=== PATIENT | female | born 1970 | race Caucasian/White ===

== ENCOUNTER 2018-08-09 12:49 | Emergency (ER) | payer OTHER ==
[2018-08-09] MEDS ORDERED: Albuterol/Ipratropium 3.0-0.5 MG/3 ML Neb Soln NEB ONE (13:14)
--- NOTE | 2018-08-09 13:22 | EDM.PDOC ---
ED HPI GENERAL MEDICAL PROBLEM - General Chief Complaint: Respiratory Problem Stated Complaint: [facility] Time Seen by Provider: 08/09/18 13:04 Source of Information: Reports: Patient History Limitations: Reports: No Limitations - History of Present Illness INITIAL COMMENTS - FREE TEXT/NARRATIVE: Patient is a 47-year-old female presents ED with a 2 week history of increasing shortness of breath. Patient states she's had a cough that is intermittently productive. At times has cough-induced emesis. Has noticed some increased wheezing to both lungs. States she's been gasping for air on multiple occasions in the day. She's had increase shortness of breath with exertion. She is unable to sleep laying flat due to increased shortness of breath. She's has noticed increased swelling to her lower extremities and recent weight gain. There has been at times chest tightness with increased shortness of breath relieved with rest. She has received a DuoNeb and albuterol treatment enroute with some improvements. She has no history of COPD and/or asthma. There's been questionable tactile fevers off and on since onset. She does have a history of severe scoliosis and notes she does not have recurrent history pneumonia. There' s been no upper story symptoms. She does smoke approximately half pack per day up until about 2 weeks ago. There is no history of pulmonary hypertension. She has no history of CAD. No history of DVT or PE. Patient denies any recent alcohol use. Denies recreational drug use. 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 Thus the patient was breathing in smoke. Multiple other coworkers had similar complaints. Denies fever, generalized body aches, abdominal pain, CVA tenderness, and/or dysuria. Treatments [employer]: Reports: Other (see below) Other Treatments [employer] W[employer]ER: albuteral neb and duoneb enroute Chest Pain Score (Numeric/FACES): 8 - Related Data Allergies Allergy/AdvReac Type Severity Reaction Status Date / Time No Known Allergies Allergy Verified 08/09/18 13:01 Home Meds: Home Meds . [No Known Home Meds] 08/09/18 [History] Past Medical History Musculoskeletal History: Reports: Other (See Below) Other Musculoskeletal History: sciolosis x 2 surgeries - Past Surgical History Female Surgical History: Reports: Tubal Ligation Social & Family History - Tobacco Use Smoking Status *Q: Former Smoker Used Tobacco, but Quit: Yes Month/Year Tobacco Last Used: 2 weeks ago - Caffeine Use Caffeine Use: Reports: Coffee, Soda, Tea - Recreational Drug Use Recreational Drug Use: No ED ROS GENERAL - Review of Systems Review Of Systems: ROS reveals no pertinent complaints other than HPI. ED EXAM, GENERAL - Physical Exam Exam: See Below Exam Limited By: No Limitations General Appearance: Alert, WD/WN, Mild Distress Ears: Hearing Grossly Normal Nose: Normal Inspection Throat/Mouth: Normal Voice, No Airway Compromise Neck: Normal Inspection, Supple Respiratory/Chest: No Respiratory Distress, No Accessory Muscle Use, Chest Non- Tender, Rhonchi (right base. ), Prolonged Expiration, Other (Patient has severe scoliosis limiting chest expansion. She occassionally gasps for air. With movement sob worsens. ). No: Wheezing Cardiovascular: Normal Peripheral Pulses, Regular Rate, Rhythm, No Murmur ( Obvious) Peripheral Pulses: 2+: Radial (L), Radial (R) GI/Abdominal: Normal Bowel Sounds, Soft, Non-Tender, No Organomegaly, No Distention Extremities: Normal Inspection, Normal Range of Motion, Non-Tender, Normal Capillary Refill, Pedal Edema (trace bilaterally. ). No: No Pedal Edema Neurological: Alert, Oriented, CN II-XII Intact, Normal Cognition, No Motor/ Sensory Deficits Psychiatric: Normal Affect, Normal Mood Skin Exam: Warm, Dry, Intact, Normal Color, No Rash Course - Vital Signs Last Recorded V/S: Last Vital Signs Temp 98.0 F 08/09/18 12:55 Pulse 91 08/09/18 12:55 Resp 12 08/09/18 12:55 BP 139/100 H 08/09/18 12:55 Pulse Ox 99 08/09/18 13:23 - Orders/Labs/Meds Orders: Active Orders 24 hr Category Date Time Status BIPAP Adult [RT BiPAP/CPAP] [RC] ASDIRECTED Care 08/09/18 14:47 Active Communication Order [RC] STAT Care 08/09/18 15:49 Active EKG Documentation Completion [RC] STAT Care 08/09/18 13:12 Active Oxygen Therapy [RC] ASDIRECTED Care 08/09/18 13:12 Active Peripheral IV Care [RC] . DIRECTED Care 08/09/18 13:13 Active RT Aerosol Therapy [RC] ASDIRECTED Care 08/09/18 13:14 Active Chest 2V [CR] Stat Exams 08/09/18 13:12 Taken PE Chest [Ang Chest] [CT] Stat Exams 08/09/18 14:21 Taken Peripheral IV Insertion Adult [OM.PC] Stat Oth 08/09/18 13:12 Ordered Labs: Laboratory Tests 08/09/18 08/09/18 08/09/18 Range/Units 13:12 13:20 13:29 WBC 10.98 H (3.98-10.04) K/mm3 RBC 4.91 (3.98-5.22) M/mm3 Hgb 12.7 (11.2-15.7) gm/L Hct 41.1 (34.1-44.9) % MCV 83.7 (79.4-94.8) fl MCH 25.9 (25.6-32.2) pg MCHC 30.9 L (32.2-35.5) g/dl RDW Std Deviation 43.8 (36.4-46.3) fL Plt Count 404 H (182-369) K/mm3 MPV 9.5 (9.4-12.3) fl Neutrophils % (Manual) 70 H (40-60) % Band Neutrophils % 0 (0-10) % Lymphocytes % (Manual) 26 (20-40) % Atypical Lymphs % 0 % Monocytes % (Manual) 3 (2-10) % Eosinophils % (Manual) 1 (0.7-5.8) % Basophils % (Manual) 0 L (0.1-1.2) Platelet Estimate Adequate Plt Morphology Comment Normal Hypochromasia 1+ slight Anisocytosis 1+ sligh RBC Morph Comment Not Reportable PT (9.5-12.1) SECONDS INR APTT (24-31) SECONDS D-Dimer, Quantitative (0.19-0.50) mg/L Puncture Site Rt radial ABG pH 7.40 (7.35-7.45) ABG pCO2 37.7 (35.0-45.0) mmHg ABG pO2 99.0 (80.0-100.0) mmHg ABG HCO3 22.7 (22.0-26.0) meq/L ABG O2 Saturation 97.4 H (96.0-97.0) % ABG Base Excess -1.4 (-2-2.0) ABG Carboxyhemoglobin 2.3 H (0.00-1.50) %THgb Joel Test Positive O2 Delivery Device Nasal cannula Oxygen Flow Rate 2.0 FiO2 0.00 L (21.00-100.00) % Sodium (136-145) mEq/L Potassium (3.5-5.1) mEq/L Chloride (98-107) mEq/L Carbon Dioxide (21-32) mEq/L Anion Gap (5-15) BUN (7-18) mg/dL Creatinine (0.55-1.02) mg/dL Est Cr Clr Drug Dosing mL/min Estimated GFR (MDRD) (>60) mL/min BUN/Creatinine Ratio (14-18) Glucose (74-106) mg/dL Lactic Acid (0.4-2.0) mmol/L Calcium (8.5-10.1) mg/dL Total Bilirubin (0.2-1.0) mg/dL AST (15-37) U/L ALT (14-59) U/L Alkaline Phosphatase (46-116) U/L Troponin I (0.00-0.056) ng/mL NT-Pro-B Natriuret Pep (0-125) pg/mL Total Protein (6.4-8.2) g/dl Albumin (3.4-5.0) g/dl Globulin gm/dL Albumin/Globulin Ratio (1-2) Urine Color (Yellow) Urine Appearance (Clear) Urine pH (5.0-8.0) Ur Specific [place] (1.005-1.030) Urine Protein (Negative) Urine Glucose (UA) (Negative) Urine Ketones (Negative) Urine Occult Blood (Negative) Urine Nitrite (Negative) Urine Bilirubin (Negative) Urine Urobilinogen (0.2-1.0) Ur Leukocyte Esterase (Negative) Urine RBC (0-5) /hpf Urine WBC (0-5) /hpf Ur Epithelial Cells (0-5) /hpf Urine Bacteria (FEW) /hpf Urine Mucus (FEW) /hpf Urine Opiates Screen (NEGATIVE) Ur Buprenorphine Scrn (NEGATIVE) Ur Oxycodone Screen (NEGATIVE) Urine Methadone Screen (NEGATIVE) Ur Propoxyphene Screen (NEGATIVE) Ur Barbiturates Screen (NEGATIVE) Ur Tricyclics Screen (NEGATIVE) Ur Phencyclidine Scrn (NEGATIVE) Ur Amphetamine Screen (NEGATIVE) U Methamphetamines Scrn (NEGATIVE) U Benzodiazepines Scrn (NEGATIVE) U Cocaine Metab Screen (NEGATIVE) U Marijuana (THC) Screen (NEGATIVE) 08/09/18 08/09/18 08/09/18 Range/Units 13:29 13:29 13:29 WBC (3.98-10.04) K/mm3 RBC (3.98-5.22) M/mm3 Hgb (11.2-15.7) gm/L Hct (34.1-44.9) % MCV (79.4-94.8) fl MCH (25.6-32.2) pg MCHC (32.2-35.5) g/dl RDW Std Deviation (36.4-46.3) fL Plt Count (182-369) K/mm3 MPV (9.4-12.3) fl Neutrophils % (Manual) (40-60) % Band Neutrophils % (0-10) % Lymphocytes % (Manual) (20-40) % Atypical Lymphs % % Monocytes % (Manual) (2-10) % Eosinophils % (Manual) (0.7-5.8) % Basophils % (Manual) (0.1-1.2) Platelet Estimate Plt Morphology Comment Hypochromasia Anisocytosis RBC Morph Comment PT 12.1 (9.5-12.1) SECONDS INR 1.11 APTT 28 (24-31) SECONDS D-Dimer, Quantitative 1.87 H (0.19-0.50) mg/L Puncture Site ABG pH (7.35-7.45) ABG pCO2 (35.0-45.0) mmHg ABG pO2 (80.0-100.0) mmHg ABG HCO3 (22.0-26.0) meq/L ABG O2 Saturation (96.0-97.0) % ABG Base Excess (-2-2.0) ABG Carboxyhemoglobin (0.00-1.50) %THgb Joel Test O2 Delivery Device Oxygen Flow Rate FiO2 (21.00-100.00) % Sodium 137 (136-145) mEq/L Potassium 4.1 (3.5-5.1) mEq/L Chloride 103 (98-107) mEq/L Carbon Dioxide 25 (21-32) mEq/L Anion Gap 13.1 (5-15) BUN 17 (7-18) mg/dL Creatinine 1.3 H (0.55-1.02) mg/dL Est Cr Clr Drug Dosing 53.14 mL/min Estimated GFR (MDRD) 44 (>60) mL/min BUN/Creatinine Ratio 13.1 L (14-18) Glucose 102 (74-106) mg/dL Lactic Acid (0.4-2.0) mmol/L Calcium 9.1 (8.5-10.1) mg/dL Total Bilirubin 0.5 (0.2-1.0) mg/dL AST 22 (15-37) U/L ALT 42 (14-59) U/L Alkaline Phosphatase 116 (46-116) U/L Troponin I 0.070 H* (0.00-0.056) ng/mL NT-Pro-B Natriuret Pep 8591 H (0-125) pg/mL Total Protein 7.1 (6.4-8.2) g/dl Albumin 3.2 L (3.4-5.0) g/dl Globulin 3.9 gm/dL Albumin/Globulin Ratio 0.8 L (1-2) Urine Color (Yellow) Urine Appearance (Clear) Urine pH (5.0-8.0) Ur Specific [place] (1.005-1.030) Urine Protein (Negative) Urine Glucose (UA) (Negative) Urine Ketones (Negative) Urine Occult Blood (Negative) Urine Nitrite (Negative) Urine Bilirubin (Negative) Urine Urobilinogen (0.2-1.0) Ur Leukocyte Esterase (Negative) Urine RBC (0-5) /hpf Urine WBC (0-5) /hpf Ur Epithelial Cells (0-5) /hpf Urine Bacteria (FEW) /hpf Urine Mucus (FEW) /hpf Urine Opiates Screen (NEGATIVE) Ur Buprenorphine Scrn (NEGATIVE) Ur Oxycodone Screen (NEGATIVE) Urine Methadone Screen (NEGATIVE) Ur Propoxyphene Screen (NEGATIVE) Ur Barbiturates Screen (NEGATIVE) Ur Tricyclics Screen (NEGATIVE) Ur Phencyclidine Scrn (NEGATIVE) Ur Amphetamine Screen (NEGATIVE) U Methamphetamines Scrn (NEGATIVE) U Benzodiazepines Scrn (NEGATIVE) U Cocaine Metab Screen (NEGATIVE) U Marijuana (THC) Screen (NEGATIVE) 10/06/18 10/06/18 10/06/18 Range/Units 13:29 14:02 14:02 WBC (3.98-10.04) K/mm3 RBC (3.98-5.22) M/mm3 Hgb (11.2-15.7) gm/L Hct (34.1-44.9) % MCV (79.4-94.8) fl MCH (25.6-32.2) pg MCHC (32.2-35.5) g/dl RDW Std Deviation (36.4-46.3) fL Plt Count (182-369) K/mm3 MPV (9.4-12.3) fl Neutrophils % (Manual) (40-60) % Band Neutrophils % (0-10) % Lymphocytes % (Manual) (20-40) % Atypical Lymphs % % Monocytes % (Manual) (2-10) % Eosinophils % (Manual) (0.7-5.8) % Basophils % (Manual) (0.1-1.2) Platelet Estimate Plt Morphology Comment Hypochromasia Anisocytosis RBC Morph Comment PT (9.5-12.1) SECONDS INR APTT (24-31) SECONDS D-Dimer, Quantitative (0.19-0.50) mg/L Puncture Site ABG pH (7.35-7.45) ABG pCO2 (35.0-45.0) mmHg ABG pO2 (80.0-100.0) mmHg ABG HCO3 (22.0-26.0) meq/L ABG O2 Saturation (96.0-97.0) % ABG Base Excess (-2-2.0) ABG Carboxyhemoglobin (0.00-1.50) %THgb Joel Test O2 Delivery Device Oxygen Flow Rate FiO2 (21.00-100.00) % Sodium (136-145) mEq/L Potassium (3.5-5.1) mEq/L Chloride (98-107) mEq/L Carbon Dioxide (21-32) mEq/L Anion Gap (5-15) BUN (7-18) mg/dL Creatinine (0.55-1.02) mg/dL Est Cr Clr Drug Dosing mL/min Estimated GFR (MDRD) (>60) mL/min BUN/Creatinine Ratio (14-18) Glucose (74-106) mg/dL Lactic Acid 1.0 (0.4-2.0) mmol/L Calcium (8.5-10.1) mg/dL Total Bilirubin (0.2-1.0) mg/dL AST (15-37) U/L ALT (14-59) U/L Alkaline Phosphatase (46-116) U/L Troponin I (0.00-0.056) ng/mL NT-Pro-B Natriuret Pep (0-125) pg/mL Total Protein (6.4-8.2) g/dl Albumin (3.4-5.0) g/dl Globulin gm/dL Albumin/Globulin Ratio (1-2) Urine Color Yellow (Yellow) Urine Appearance Clear (Clear) Urine pH 6.0 (5.0-8.0) Ur Specific [place] 1.025 (1.005-1.030) Urine Protein 2+ H (Negative) Urine Glucose (UA) Negative (Negative) Urine Ketones Negative (Negative) Urine Occult Blood 1+ H (Negative) Urine Nitrite Negative (Negative) Urine Bilirubin Negative (Negative) Urine Urobilinogen 0.2 (0.2-1.0) Ur Leukocyte Esterase Negative (Negative) Urine RBC 0-5 (0-5) /hpf Urine WBC 0-5 (0-5) /hpf Ur Epithelial Cells 0-5 (0-5) /hpf Urine Bacteria Rare (FEW) /hpf Urine Mucus Not seen (FEW) /hpf Urine Opiates Screen Negative (NEGATIVE) Ur Buprenorphine Scrn Negative (NEGATIVE) Ur Oxycodone Screen Negative (NEGATIVE) Urine Methadone Screen Negative (NEGATIVE) Ur Propoxyphene Screen Negative (NEGATIVE) Ur Barbiturates Screen Negative (NEGATIVE) Ur Tricyclics Screen Negative (NEGATIVE) Ur Phencyclidine Scrn Negative (NEGATIVE) Ur Amphetamine Screen Negative (NEGATIVE) U Methamphetamines Scrn Negative (NEGATIVE) U Benzodiazepines Scrn Negative (NEGATIVE) U Cocaine Metab Screen Negative (NEGATIVE) U Marijuana (THC) Screen Negative (NEGATIVE) Meds: Medications Discontinued Medications Generic Name Dose Route Start Last Admin Trade Name Freq PRN Reason Stop Dose Admin Albuterol/Ipratropium 3 ml 08/09/18 13:14 08/09/18 13:20 Duoneb 3.0-0.5 Mg/3 Ml NEB 08/09/18 13:15 3 ml ONETIME ONE Administration Enoxaparin Sodium 80 mg 08/09/18 14:46 08/09/18 15:12 Lovenox SUBCUT 08/09/18 14:47 Not Given ONETIME ONE Furosemide 80 mg 08/09/18 14:46 08/09/18 15:00 Lasix IVPUSH 08/09/18 14:47 80 mg NOW ONE Administration Heparin Sodium (Porcine) 4,000 units 08/09/18 15:04 08/09/18 15:10 Heparin Sodium IVPUSH 08/09/18 15:05 4,000 units ONETIME ONE Administration Sodium Chloride 250 mls @ 75 mls/hr 08/09/18 14:30 Normal Saline IV ASDIRECTED MARLI Heparin Sodium/Dextrose 25,000 units in 500 mls @ 19.051 mls/hr 08/09/18 15: 15 08/09/18 15:11 Heparin 25,000 Units In D5w 500 Ml IV 12 units/kg/hr TITRATE MARLI 19.051 mls/hr Administration Protocol 12 UNITS/KG/HR Nitroglycerin/Dextrose 25 mg in 250 mls @ 3 mls/hr 08/09/18 16:00 08/09/18 15 :58 Nitroglycerin 25 Mg/D5w 250 Ml IV 5 mcg/min TITRATE MARLI 3 mls/hr Administration Protocol 5 MCG/MIN Iopamidol 100 ml 08/09/18 14:27 08/09/18 14:53 Isovue-370 (76%) IVPUSH 08/09/18 14:28 100 ml ONETIME ONE Administration Nitroglycerin 1 gm 08/09/18 14:49 08/09/18 15:00 Nitro-Bid 2% TOP 08/09/18 14:50 1 gm ONETIME ONE Administration Simvastatin 80 mg 08/09/18 21:00 Zocor PO BEDTIME MARLI Simvastatin 80 mg 08/09/18 15:51 08/09/18 15:57 Zocor PO 08/09/18 15:52 80 mg NOW STA Administration Sodium Chloride 10 ml 08/09/18 13:12 08/09/18 14:53 Saline Flush FLUSH 10 ml ASDIRECTED PRN Administration Keep Vein Open - Re-Assessments/Exams Free Text/Narrative Re-Assessment/Exam: Patient currently on O2 via nasal cannula 2 L/m and satting 99%. Blood pressure 158/114. Heart rate 83. Respiratory rate 21. Patient is able to speak in 6 word sentences. She does appear to be mildly short of breath. IV will be established. Patient did receive albuterol and DuoNeb during transport. I have ordered another DuoNeb 1. Initial labs and studies will include: CBC, chem 14, CRP, d-dimer, blood gas, proBNP, troponin, coag studies, chest x-ray two-view, and EKG. I have also ordered a carboxyhemoglobin. 08/09/18 13:42 EKG sinus rhythm with a borderline short MT interval. QTC is prolonged at 563. No acute ST changes noted. She is on no medications currently. X-ray of the chest reviewed with Dr. Barker. Cardiomegaly with increased pulmonary vascularization. Labs reviewed: White blood cell count 10.98, platelet count 404, creatinine 1.3 , lactic acid 1, troponin 0.070, proBNP is 8591. Blood gas pH 7.4, PCO2 37.7, PO2 99, HCO3 22.7, O2 saturations 97.4, carboxyhemoglobin 2.3, FiO2 0.00. Patient administered O2 via nasal cannula 2 L/m. UA positive for blood. Protein plus. Urine drug tox negative. DDimer 1.87. CTA of the chest ordered to rule out PE. I have elected to start the patient on lasix 80 mg IVP and nitro paste. Lovenox was initially ordered and discontinued. Changed to heparin gtt with bolus. Differential Diagnosis PE with right sided heart strain. More likely patient suffered a nstemi and now has developed CHF. 1515 Reassessment, patient continues to have intermittent gasping for air. Although she states she is not significant short of breath. Blood pressure 164/ 110, heart rate 94, SPO2 97% on 2 L of O2 per minute. Respiratory rate 23. With any type of movement patient gets extremely short of breath. CTA Chest Impression: 1. Bilateral pleural effusions, greater on the right. 2. Infiltrates noted within both lung bases. 3. No pulmonary embolism. 08/09/18 15:30 Simvastatin 80 mg by mouth. No additional adjustments to current medications will be initiated. 1543 Dr. [facility] has agreed to admit patient. Ambulance has been notified. All transfer paperwork completed. 1545 Reassessment, patient states she is feeling better after the above medications were administered. I have discontinued the nitro paste and started nitro gtt for easier titrating for EMS. Departure - Departure Time of Disposition: 15:43 Disposition: DC/Tfer to Acute Hospital 02 Condition: Fair Clinical Impression: NSTEMI (non-ST elevated myocardial infarction), New onset of congestive heart failure - Discharge Information Referrals: PCP,None [Primary Care Provider] - Forms: ED Department Discharge - My Orders Last 24 Hours: My Active Orders 08/09/18 13:12 EKG Documentation Completion [RC] STAT Oxygen Therapy [RC] ASDIRECTED Chest 2V [CR] Stat Peripheral IV Insertion Adult [OM.PC] Stat 08/09/18 13:13 Peripheral IV Care [RC] . DIRECTED 08/09/18 13:14 RT Aerosol Therapy [RC] ASDIRECTED 08/09/18 14:21 PE Chest [Ang Chest] [CT] Stat 08/09/18 14:47 BIPAP Adult [RT BiPAP/CPAP] [RC] ASDIRECTED 08/09/18 15:49 Communication Order [RC] STAT - Assessment/Plan Last 24 Hours: My Active Orders 08/09/18 13:12 EKG Documentation Completion [RC] STAT Oxygen Therapy [RC] ASDIRECTED Chest 2V [CR] Stat Peripheral IV Insertion Adult [OM.PC] Stat 08/09/18 13:13 Peripheral IV Care [RC] . DIRECTED 08/09/18 13:14 RT Aerosol Therapy [RC] ASDIRECTED 08/09/18 14:21 PE Chest [Ang Chest] [CT] Stat 08/09/18 14:47 BIPAP Adult [RT BiPAP/CPAP] [RC] ASDIRECTED 08/09/18 15:49 Communication Order [RC] STAT
[2018-08-09] MEDS: Sodium Chloride 0.9% 10 ML Syringe FLUSH PRN ×2 (13:28→14:53)
[2018-08-09] MEDS ORDERED: Iopamidol 755 Mg/ML 100 ML Bottle IVPUSH ONE (14:27)
[2018-08-09] MEDS ORDERED: Sodium Chloride 0.9% 250 ML IV SCH (14:30)
[2018-08-09] MEDS ORDERED: Furosemide 40 MG/4 ML VIAL IVPUSH ONE (14:46)
[2018-08-09] MEDS ORDERED: Enoxaparin 80 MG/0.8 ML Syringe SUBCUT ONE (14:46)
[2018-08-09] MEDS ORDERED: Nitroglycerin 2% Oint 1 GM UD Packet TOP ONE (14:49)
[2018-08-09] MEDS ORDERED: Heparin Sodium 5,000 Units/ML Vial IVPUSH ONE (15:04)
[2018-08-09] MEDS ORDERED: Heparin Sodium/D5W 25,000 UNITS/500 ML BAG IV SCH (15:15)
[2018-08-09] MEDS ORDERED: Simvastatin 40 MG Tab PO STA (15:51)
[2018-08-09] MEDS ORDERED: Nitroglycerin/D5W 25 MG/250 ML BOTTLE IV SCH (16:00)
[2018-08-09] MEDS ORDERED: Simvastatin 40 MG Tab PO SCH (21:00)
--- NOTE | 2018-08-11 08:45 | CT ---
CT chest Technique: Multiple axial sections were obtained from above the lung apices inferiorly through the lung bases. Intravenous contrast was utilized. Study has been performed as a pulmonary angiogram protocol. Findings: Pulmonary arteries are well-opacified. No filling defects are seen to indicate pulmonary embolism. Small to moderate size right-sided pleural effusion is seen with minimal left-sided pleural effusion. Visualized upper abdominal structures appear within normal limits. Heart is slightly enlarged. Slight atelectasis on a compressive basis is seen adjacent to both pleural effusions. No acute parenchymal change is otherwise identified. Bone window settings were reviewed which show scoliosis and degenerative change within the spine. No acute bony abnormality is identified. Impression: 1. Heart is enlarged. Bilateral pleural effusions. 2. No findings of pulmonary embolism. 3. Other incidental findings. Diagnostic code #3 Agree with preliminary report issued by [facility] ([facility] preliminary report dictated on 08/09/18, 4:24 PM Central Time)
--- NOTE | 2018-08-11 08:46 | CR ---
Chest: Two views of the chest were obtained. Comparison: No prior chest x-ray. Heart is enlarged. Pulmonary vessels are minimally congested. Small bilateral pleural effusions are noted. Scoliosis is noted within the spine. Impression: 1. Findings suspicious for mild CHF. 2. Other incidental finding. Diagnostic code #3
== END 2018-08-09 16:16 ==
LOC: JD.ED 12:49
DX: I21.4 Non-ST elevation (NSTEMI) myocardial infarction (principal); I50.9 Heart failure, unspecified; Z87.891 Personal history of nicotine dependence
CPT/HCPCS: 36415; 36600; 71046; 71275; 80053; 80306; 81001; 82375; 82803; 83605; 83880; 84484; 85007; 85027; 85379; 85610; 85730; 93005; 94640; 96365; 96368; 96375; 96376; 99285; A9270; J1644; J1940; J3490; J7050; Q9967; 93010; J7620-GY